=== PATIENT | female | born 1995 | race Two or more races ===

== ENCOUNTER 2024-04-01 14:37 | Outpatient (CLI) | payer OTHER | END 2024-04-01 15:10 | disposition home or self-care (01) | LOC: MAMO-SONO 14:37 | PROVIDERS: ATTEND General Practice | DX: N60.11 Diffuse cystic mastopathy of right breast (principal); N60.12 Diffuse cystic mastopathy of left breast; N64.0 Fissure and fistula of nipple; N63.0 Unspecified lump in unspecified breast ==